=== PATIENT | female | born 1965 | race Caucasian/White ===

== ENCOUNTER 2019-01-28 01:12 | Emergency (ER) | payer SELFPAY ==
[~2019-01-28] VITALS: Ht 149.9 cm; Wt 64.0 kg
[2019-01-28 02:09] VITALS: BP 147/74
== END 2019-01-28 02:50 | disposition home or self-care (01) ==
LOC: ER 01:51
DX: J39.2 Other diseases of pharynx (principal); I10 Essential (primary) hypertension
CPT/HCPCS: 99283